=== PATIENT | female | born 1990 | race Caucasian/White ===

== ENCOUNTER 2019-05-27 05:08 | Emergency (ER) | payer BC, OTHER ==
[2019-05-27] MEDS ORDERED: DEXAMETHASONE SOD PHOSPHATE 10 MG/ML 1 ML VIAL IM STA (05:10)
[2019-05-27] MEDS ORDERED: PENICILLIN G BENZATHINE 1,200,000 UNIT/2 ML SYRINGE IM ONE (05:15)
--- NOTE | 2019-05-27 05:15 | ED ---
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 Patient presents the emergency department this morning for evaluation of progressively worsening sore throat and tonsillar enlargement and tender anterior cervical adenopathy. Patient does have 2 small children at home. They have not been sick. Patient reports she's had sore throat for couple of days but over the course of this shift while she's been speaking to patient's she's noticed progressively worsening sore throat and tender anterior cervical lymphadenopathy. Patient denies fevers chills nausea or vomiting. She's been eating and drinking well. She is not recently been treated for strep. - Related Data Allergies Allergy/AdvReac Type Severity Reaction Status Date / Time No Known Allergies Allergy Verified 05/27/19 05:19 Review of Systems ROS Statement: Those systems with pertinent positive or pertinent negative responses have been documented in the HPI. ROS Other: All systems not noted in ROS Statement are negative. General Exam - General Exam Comments Initial Comments: Physical Exam GENERAL: Patient is well-developed and well-nourished. Patient is nontoxic and well-hydrated and is in no distress. HENT: Normocephalic, Atraumatic. Tonsils bilaterally are enlarged with exudates Uvula is midline Tender anterior cervical lymphadenopathy EYES: PERRL, EOMI PULMONARY: Unlabored respirations CARDIOVASCULAR: RRR ABDOMEN: Nondistended SKIN: No rash : Deferred NEUROLOGIC: Patient is alert and oriented x3. Moving all extremities spontaneously MUSCULOSKELETAL: Normal extremities with adequate strength and full range of motion. No lower extremity swelling or edema. No calf tenderness. PSYCHIATRIC: Normal psychiatric evaluation. Course Vital Signs 05/27/19 05:14 Temperature 98 F Pulse Rate 119 H Respiratory 20 Rate Blood Pressure 177/116 O2 Sat by Pulse 97 Oximetry Medical Decision Making - Medical Decision Making The patient was seen and evaluated history is obtained from the patient is an history and physical exam are consistent with acute streptococcal pharyngitis. Treatment options were discussed with the patient. Offered the patient oral antibiotics versus IM penicillin. Patient prefers single IM dose she doesn't swallow pills. Decadron was ordered due to swelling. Penicillin was ordered. Patient discharged home in stable condition. Disposition Clinical Impression: Sore throat Disposition: HOME SELF-CARE Condition: Stable Instructions (If sedation given, give patient instructions): Strep Throat (DC) Is patient prescribed a controlled substance at d/c from ED?: No Referrals: Opal Lugo III, MD [Primary Care Provider] - 1-2 days
[2019-05-27 05:19] VITALS: BP 177/116; PULSE 119; RESP 20; TEMP 98
== END 2019-05-27 05:48 | disposition home or self-care (01) ==
LOC: EC 05:08
DX: J02.9 Acute pharyngitis, unspecified (principal)
CPT/HCPCS: 99283; 96372 ×2; J0561; J1100

== ENCOUNTER 2019-08-18 07:35 | Emergency (ER) | payer BC, OTHER ==
[2019-08-18 07:40] VITALS: BP 136/90; PULSE 110; RESP 19; TEMP 97.9
[2019-08-18] MEDS ORDERED: ACET/COD 300 MG/30 MG STARTER PACK 6 TAB BTL PO STA (07:54)
--- NOTE | 2019-08-18 07:57 | ED ---
Upper Extremity HPI - General Chief Complaint: Extremity Injury, Upper Stated Complaint: Fall, arm injury Time Seen by Provider: 08/18/19 07:42 Source: patient Mode of arrival: ambulatory Limitations: no limitations - History of Present Illness Initial Comments: 29-year-old female presents today for chief complaint of left elbow pain. Patient states that she fell in attempt at getting all the way for another person on the sidewalk she states that there was a large step-off. Patient states that she extended her left arm to catch herself and felt as though she hyperextended the left elbow. Patient denies any wrist pain shoulder pain she denies any injury to the head neck or back. Patient states she slightly rolled her right ankle but states this is not painful. She states her only area complaint is right elbow which is sharp shooting pain that times radiates down toward the right pinky. Especially with range of motion. Patient denies any weakness or numbness or coolness pallor of the extremity. Patient denies any other areas of complaint. Remaining review of systems negative upon arrival patient appears uncomfortable. - Related Data Home Medications Medication Instructions Recorded Confirmed Norgestimate-Ethinyl Estradiol 1 tab PO DAILY 08/18/19 08/18/19 [Sprintec 28 Day Tablet] Previous Rx's Medication Instructions Recorded Acetaminophen with Codeine 1 tab PO Q6H PRN 3 Days #12 tab 08/18/19 [Tylenol w/codeine #3] Allergies Allergy/AdvReac Type Severity Reaction Status Date / Time No Known Allergies Allergy Verified 08/18/19 08:32 Review of Systems ROS Statement: Those systems with pertinent positive or pertinent negative responses have been documented in the HPI. ROS Other: All systems not noted in ROS Statement are negative. Past Medical History Additional Past Medical History / Comment(s): PCOS History of Any Multi-Drug Resistant Organisms: None Reported Past Surgical History: Appendectomy Past Psychological History: No Psychological Hx Reported Smoking Status: Never smoker Past Alcohol Use History: Occasional Past Drug Use History: None Reported General Exam - General Exam Comments Initial Comments: General: The patient is awake and alert, in no distress, and does not appear acutely ill. Eye: +3 mm pupils are equal, round and reactive to light, extra-ocular movements are intact. No nystagmus. There is normal conjunctiva bilaterally. No signs of icterus. Cardiovascular: There is a regular rate and rhythm. No murmur, rub or gallop is appreciated. Respiratory: Lungs are clear to auscultation, respirations are non-labored, breath sounds are equal. No wheezes, stridor, rales, or rhonchi. Musculoskeletal: Upon inspection of the elbows bilaterally there is some soft tissue swelling noted over the ill or cramping process of the left elbow with point localized tenderness over the radial head patient has full range of motion at the wrist with no evidence of wrist drop. Normal ROM at the elbow but this causes pain especially with pronation and supination. Strength 5/5 of the UE b/l. Sensation intact of the UE b/l. Radial pulses equal bilaterally 2+. Neurological: A&O x 3. CN II-XII intact grossly, There are no obvious motor or sensory deficits. Coordination appears grossly intact. Speech is normal. Skin: Skin is warm and dry and no rashes or lesions are noted. Psychiatric: Cooperative, appropriate mood & affect, normal judgment. Limitations: no limitations Course Vital Signs 08/18/19 07:38 Temperature 97.9 F Pulse Rate 110 H Respiratory 19 Rate Blood Pressure 136/90 O2 Sat by Pulse 98 Oximetry Medical Decision Making - Medical Decision Making 29-year-old female presenting for fall. Left elbow pain no other complaints. Physical exam findings correlate clinically with the radial head fracture. Patient neurovascularly intact. Splint and sling were applied no change in neurovascular exam. Patient given starter pack for Tylenol No. 3 as well as outpatient prescription. Appropriate use and administration was discussed. Patient reports understanding. Otherwise this time feel patient is stable for discharge with outpatient orthopedic follow-up. Patient discharged appearing well. Disposition Clinical Impression: Radial head fracture, Fall Disposition: HOME SELF-CARE Condition: Good Instructions (If sedation given, give patient instructions): Elbow Fracture (ED) Additional Instructions: Please use medication as discussed. Please follow-up with orthopedic surgery in next week. Sling for comfort and keep splint in place. Please return to emergency room if the symptoms increase or worsen or for any other concerns. Prescriptions: Acetaminophen with Codeine [Tylenol w/codeine #3] 1 tab PO Q6H PRN 3 Days #12 tab PRN Reason: Severe Pain Is patient prescribed a controlled substance at d/c from ED?: Yes When asked, does pt state using other controlled substances?: No If prescribed controlled substance>3 days was MAPS reviewed?: Prescribed <3 Days If opioid is for acute pain is fill amount 7 days or less?: Yes If Rx opioid, was Start Talking consent form obtained?: Yes Referrals: Opal Lugo III, MD [Primary Care Provider] - 1-2 days Bossman Herrera DO [Medical Doctor] - 1-2 days Time of Disposition: 08:21
--- NOTE | 2019-08-18 08:15 | XR ---
EXAMINATION TYPE: XR elbow complete LT DATE OF EXAM: 08/18/2019 COMPARISON: NONE HISTORY: 29-year-old female fall and elbow pain TECHNIQUE: 3 views FINDINGS: Anterior elbow joint effusion. There is a nondisplaced, minimally impacted, intra-articular fracture of the lateral aspect of the radial head. No subluxation or dislocation. IMPRESSION: Nondisplaced, minimally impacted, intra-articular fracture along the lateral aspect of th e radial head. Associated anterior elbow joint effusion.
== END 2019-08-18 08:54 | disposition home or self-care (01) ==
LOC: EC 07:35
DX: S52.122A Displaced fracture of head of left radius, initial encounter for closed fracture (principal); Z79.3 Long term (current) use of hormonal contraceptives; W19.XXXA Unspecified fall, initial encounter; X50.1XXA Overexertion from prolonged static or awkward postures, initial encounter; Y93.89 Activity, other specified; Y92.480 Sidewalk as the place of occurrence of the external cause
CPT/HCPCS: 29105; 99283

== ENCOUNTER → 2019-09-05 | Outpatient (CLI) | payer OTHER | END | disposition home or self-care (01) | LOC: LABWHC1 15:57 | PROVIDERS: ATTEND Orthopaedic Surgery | DX: E55.9 Vitamin D deficiency, unspecified (principal); S52.122D Displaced fracture of head of left radius, subsequent encounter for closed fracture with routine healing; M25.522 Pain in left elbow | CPT/HCPCS: 36415; 82306 ==

== ENCOUNTER 2023-01-31 01:46 | Emergency (ER) | payer OTHER ==
[2023-01-31 01:51] VITALS: TEMP 98.8
[2023-01-31] MEDS ORDERED: ONDANSETRON 4 MG/2 ML VIAL IVP STA (02:17)
[2023-01-31] MEDS ORDERED: KETOROLAC 15 MG/ML 1 ML VIAL IVP STA (02:17)
[2023-01-31] MEDS ORDERED: SODIUM CHLORIDE 0.9% 1,000 ML IV STA (02:17)
--- NOTE | 2023-01-31 02:21 | ED ---
Abdominal Pain HPI - General Source: patient, RN notes reviewed Mode of arrival: ambulatory Limitations: no limitations - History of Present Illness MD Complaint: abdominal pain Onset/Timin -: week(s) Location: [facility] <Aleah Will - Last Filed: 01/31/23 05:11> <Iglesia Lowery - Last Filed: 01/31/23 08:17> - General Chief Complaint: Nausea/Vomiting/Diarrhea Stated Complaint: NVD, Upper Back Pain Time Seen by Provider: 01/31/23 02:07 - History of Present Illness Initial Comments: This is a 32-year-old female who presents to the emergency department for abdominal pain and upper back pain. States that she has a history of gallbladder problems and had a HIDA scan in 2016. States that this showed that she had a swollen and inflamed gallbladder but no gallstones. She since lost a lot of weight and was doing well. However, over the last couple of weeks she's had problems with compulsive binge eating and is eating a lot of greasy and fatty foods. Believes that she started to have gallbladder problems again, as her pain has since started to return. Reports associated nausea, vomiting, and diarrhea. Denies any fevers, chills, sore throat, cough, dyspnea, chest pain, palp itations, or headaches. (Aleah Will) - Related Data Home Medications Medication Instructions Recorded Confirmed norgestimate-ethinyl estradioL 1 tab PO DAILY 08/18/19 08/18/19 [Sprintec 28 Day Tablet] Previous Rx's Medication Instructions Recorded Acetaminophen with Codeine 1 tab PO Q6H PRN 3 Days #12 tab 08/18/19 [Tylenol w/codeine #3] Loperamide [Imodium] 2 mg PO BID PRN 7 Days #14 capsule 01/31/23 Ondansetron Odt [Zofran Odt] 4 mg PO Q8HR PRN 3 Days #9 tab 01/31/23 metroNIDAZOLE [Flagyl] 500 mg PO TID 7 Days #21 tab 01/31/23 Allergies Allergy/AdvReac Type Severity Reaction Status Date / Time No Known Allergies Allergy Verified 01/31/23 01:51 Review of Systems ROS Other: All systems not noted in ROS Statement are negative. <Aleah Will - Last Filed: 01/31/23 05:11> ROS Other: All systems not noted in ROS Statement are negative. <Iglesia Lowery - Last Filed: 01/31/23 08:17> ROS Statement: Those systems with pertinent positive or pertinent negative responses have been documented in the HPI. Past Medical History Additional Past Medical History / Comment(s): PCOS History of Any Multi-Drug Resistant Organisms: None Reported Past Surgical History: Appendectomy Past Psychological History: No Psychological Hx Reported Smoking Status: Never smoker Past Alcohol Use History: Occasional Past Drug Use History: None Reported <Aleah Will - Last Filed: 01/31/23 05:11> General Exam Limitations: no limitations General appearance: alert, in no apparent distress Head exam: Present: atraumatic, normocephalic, normal inspection Respiratory exam: Present: normal lung sounds bilaterally. Absent: respiratory distress, wheezes, rales, rhonchi, stridor Cardiovascular Exam: Present: regular rate, normal rhythm, normal heart sounds. Absent: systolic murmur, diastolic murmur, rubs, gallop, clicks GI/Abdominal exam: Present: soft, tenderness (RUQ), normal bowel sounds. Absent: distended Neurological exam: Present: alert, oriented X3, CN II-XII intact Psychiatric exam: Present: normal affect, normal mood Skin exam: Present: warm, dry, intact, normal color. Absent: rash <Aleah Will - Last Filed: 01/31/23 05:11> Course Vital Signs 01/31/23 01/31/23 01:48 06:28 Temperature 98.8 F Pulse Rate 106 H 88 Respiratory 20 18 Rate Blood Pressure 150/84 148/72 O2 Sat by Pulse 97 98 Oximetry Medical Decision Making - Lab Data Result diagrams: 01/31/23 02:12 01/31/23 02:12 - Radiology Data Radiology results: report reviewed, image reviewed <Aleah Will - Last Filed: 01/31/23 05:11> - Lab Data Result diagrams: 01/31/23 02:12 01/31/23 02:12 <Iglesia Lowery - Last Filed: 01/31/23 08:17> - Medical Decision Making This is a 32-year-old female who presents to the emergency department for abdominal pain. Was pt. sent in by a medical professional or institution? @ -No Did you speak to anyone other than the patient for history? @ -No Did you review nursing and triage notes? @ -Yes, and I agree, it is accurate with regards to the patient's symptoms. Were old charts reviewed? @ -HIDA scan from 2016 indicating a normal study. Differential Diagnosis? @ -Differential Abdominal Pain Women: Appendicitis, Cholecystitis, diverticulosis, ischemic bowel, pancreatitis, hepatitis, UTI, gastroenteritis, AAA, incarcerated hernia, bowel obstruction, constipation, inflammatory bowel, hepatitis, peptic ulcer disease, splenic infarction, perforated viscus, vulvitis, ovarian torsion, PID, kidney stone, placenta abruption, this is not meant to be an all-inclusive list EKG interpreted by me (3pts min.)? @ -Not obtained X-rays interpreted by me (1pt min.)? @ -Not obtained CT interpreted by me (1pt min.)? @ -[none] U/S interpreted by me (1pt. min.)? @ -[none] What testing was considered but not performed? (CT, X-rays, U/S, labs)? Why? @ -None What meds were considered but not given? Why? @ -None Did you discuss the management of the patient with other professionals? @ -No Did you reconcile home meds? @ -No Was smoking cessation discussed for >3mins.? @ -No Was critical care preformed (if so, how long)? @ -No Were there social determinants of health that impacted care today? How? (Homelessness, low income, unemployed, alcoholism, drug addiction, transportation, low edu. Level, literacy, decrease access to med. care, halfway, rehab)? @ -No Was there de-escalation of care discussed even if they declined? (Discuss DNR or withdrawal of care, Hospice)? @ -No What co-morbidities impacted this encounter? (DM, HTN, Smoking, COPD, CAD, Cancer, CVA, Hep., AIDS, mental health diagnosis, sleep apnea, morbid obesity)? @ -Morbid obesity Was patient admitted / discharged? @ -Lab work obtained revealing leukocytosis, and was otherwise nonactionable. Urinalysis consistent with contamination. I did review her HIDA scan from 2015 which was interpreted as normal. Pain initially controlled with Toradol, however she required morphine a couple of hours later. Ultrasound was not available when the patient presented to the emergency department. Because this was not an emergency, instead of calling the ultrasound team in overnight, computed tomography scan of the abdomen and pelvis was obtained. Due to delays associated with [employer], this was not read during my shift, and the case had to be signed out to ED attending, Dr. Lowery, at shift completion. Undiagnosed new problem with uncertain prognosis? @ -None Drug Therapy requiring intensive monitoring for toxicity (Heparin, Nitro, Insulin, Cardizem)? @ -None Were any procedures done? @ -None (Aleah Will) Patient signed out to me pending results of CT imaging. I agree with the evaluation by the mid-level provider prior to my evaluation. Abdominal labs returned remarkable for a contaminated urine. No other obvious findings. Nonspecific leukocytosis. Patient's CT abdomen and pelvis as interpreted by myself revealed cholelithiasis but no evidence of cholecystitis. Patient does have enteritis. I have given the patient. She is feeling improved. Patient will be discharged home at this time. She was in agreement this plan. As she has had symptoms for 2 weeks, it is possible that this enteritis may be bacterial in nature. I did offer a prescription for Flagyl that she can start in a few days if she is not improving. She was in agreement with this plan. She'll also be given a prescr iption for Imodium as well as ODT Zofran. I will provide the patient with a prescription for Imodium, ODT Zofran, Flagyl. I instructed the patient to follow up with their PCP in the next 1-3 days . I explained that the patient should return to the emergency department if they experience any worsening symptoms. Strict return precautions were discussed with the patient. The patient expressed understanding of these instructions. I answered all questions that the patient had. The patient was discharged home in good condition with their prescriptions and follow up information. Diagnosis/symptom? @ -Enteritis Acute, or Chronic, or Acute on Chronic? @ -Acute Uncomplicated (without systemic symptoms) or Complicated (systemic symptoms)? @ -Complicated Side effects of treatment? @ -none Exacerbation, Progression, or Severe Exacerbation] @ -no Poses a threat to life or bodily function? @ -no (Iglesia Lowery) - Lab Data Lab Results 01/31/23 01/31/23 01/31/23 Range/Units 02:12 02:12 02:12 WBC 13.3 H (3.8-10.6) k/uL RBC 4.80 (3.80-5.40) m/uL Hgb 14.4 (11.4-16.0) gm/dL Hct 44.4 (34.0-46.0) % MCV 92.5 (80.0-100.0) fL MCH 30.0 (25.0-35.0) pg MCHC 32.4 (31.0-37.0) g/dL RDW 14.4 (11.5-15.5) % Plt Count 399 (150-450) k/uL MPV 7.1 Neutrophils % 80 % Lymphocytes % 12 % Monocytes % 5 % Eosinophils % 3 % Basophils % 0 % Neutrophils # 10.5 H (1.3-7.7) k/uL Lymphocytes # 1.5 (1.0-4.8) k/uL Monocytes # 0.7 (0-1.0) k/uL Eosinophils # 0.4 (0-0.7) k/uL Basophils # 0.0 (0-0.2) k/uL Sodium 141 (137-145) mmol/L Potassium 3.9 (3.5-5.1) mmol/L Chloride 105 (98-107) mmol/L Carbon Dioxide 23 (22-30) mmol/L Anion Gap 13 mmol/L BUN 15 (7-17) mg/dL Creatinine 0.71 (0.52-1.04) mg/dL Est GFR (CKD-EPI)AfAm >90 (>60 ml/min/1.73 sqM) Est GFR (CKD-EPI)NonAf >90 (>60 ml/min/1.73 sqM) Glucose 106 H (74-99) mg/dL Calcium 9.4 (8.4-10.2) mg/dL Total Bilirubin 0.9 (0.2-1.3) mg/dL AST 27 (14-36) U/L ALT 29 (4-34) U/L Alkaline Phosphatase 84 (38-126) U/L Total Protein 7.6 (6.3-8.2) g/dL Albumin 4.4 (3.5-5.0) g/dL Amylase 49 (30-110) U/L Lipase 88 (23-300) U/L HCG, Qual Not Detected Urine Color Urine Appearance (Clear) Urine pH (5.0-8.0) Ur Specific [place] (1.001-1.035) Urine Protein (Negative) Urine Glucose (UA) (Negative) Urine Ketones (Negative) Urine Blood (Negative) Urine Nitrite (Negative) Urine Bilirubin (Negative) Urine Urobilinogen (<2.0) mg/dL Ur Leukocyte Esterase (Negative) Urine RBC (0-5) /hpf Urine WBC (0-5) /hpf Ur Squamous Epith Cells (0-4) /hpf Calcium Oxalate Crystal (None) /hpf Urine Bacteria (None) /hpf Urine Mucus (None) /hpf 01/31/23 Range/Units 02:29 WBC (3.8-10.6) k/uL RBC (3.80-5.40) m/uL Hgb (11.4-16.0) gm/dL Hct (34.0-46.0) % MCV (80.0-100.0) fL MCH (25.0-35.0) pg MCHC (31.0-37.0) g/dL RDW (11.5-15.5) % Plt Count (150-450) k/uL MPV Neutrophils % % Lymphocytes % % Monocytes % % Eosinophils % % Basophils % % Neutrophils # (1.3-7.7) k/uL Lymphocytes # (1.0-4.8) k/uL Monocytes # (0-1.0) k/uL Eosinophils # (0-0.7) k/uL Basophils # (0-0.2) k/uL Sodium (137-145) mmol/L Potassium (3.5-5.1) mmol/L Chloride (98-107) mmol/L Carbon Dioxide (22-30) mmol/L Anion Gap mmol/L BUN (7-17) mg/dL Creatinine (0.52-1.04) mg/dL Est GFR (CKD-EPI)AfAm (>60 ml/min/1.73 sqM) Est GFR (CKD-EPI)NonAf (>60 ml/min/1.73 sqM) Glucose (74-99) mg/dL Calcium (8.4-10.2) mg/dL Total Bilirubin (0.2-1.3) mg/dL AST (14-36) U/L ALT (4-34) U/L Alkaline Phosphatase (38-126) U/L Total Protein (6.3-8.2) g/dL Albumin (3.5-5.0) g/dL Amylase (30-110) U/L Lipase (23-300) U/L HCG, Qual Urine Color Yellow Urine Appearance Cloudy H (Clear) Urine pH 5.5 (5.0-8.0) Ur Specific [place] 1.031 (1.001-1.035) Urine Protein 1+ H (Negative) Urine Glucose (UA) Negative (Negative) Urine Ketones Negative (Negative) Urine Blood Small H (Negative) Urine Nitrite Negative (Negative) Urine Bilirubin Negative (Negative) Urine Urobilinogen <2.0 (<2.0) mg/dL Ur Leukocyte Esterase Large H (Negative) Urine RBC 9 H (0-5) /hpf Urine WBC 65 H (0-5) /hpf Ur Squamous Epith Cells 50 H (0-4) /hpf Calcium Oxalate Crystal Many H (None) /hpf Urine Bacteria Rare H (None) /hpf Urine Mucus Many H (None) /hpf Disposition <Aleah Will - Last Filed: 01/31/23 05:11> Is patient prescribed a controlled substance at d/c from ED?: No Time of Disposition: 06:05 <Iglesia Lowery - Last Filed: 01/31/23 08:17> Clinical Impression: Enteritis Disposition: HOME SELF-CARE Condition: Fair Instructions (If sedation given, give patient instructions): Acute Nausea and Vomiting (ED), Acute Diarrhea (ED), Enteritis (ED) Prescriptions: metroNIDAZOLE [Flagyl] 500 mg PO TID 7 Days #21 tab Loperamide [Imodium] 2 mg PO BID PRN 7 Days #14 capsule PRN Reason: Diarrhea Ondansetron Odt [Zofran Odt] 4 mg PO Q8HR PRN 3 Days #9 tab PRN Reason: Nausea Referrals: Opal Lugo III, MD [Primary Care Provider] - 1-2 days
[2023-01-31 02:29] LABS: Basophils % (A) 0 %; Eosinophils # (A) 0.4 k/uL (0-0.7); Eosinophils % (A) 3 %; HCT 44.4 % (34.0-46.0); HGB 14.4 gm/dL (11.4-16.0); Lymphocytes # (A) 1.5 k/uL (1.0-4.8); Lymphocytes % (A) 12 %; MCHC 32.4 g/dL (31.0-37.0); MCV 92.5 fL (80.0-100.0); Mean Platelet Volume 7.1; Monocytes # (A) 0.7 k/uL (0-1.0); Monocytes % (A) 5 %; Neutrophils # (A) 10.5 k/uL (1.3-7.7); Neutrophils % (A) 80 %; Platelet Count 399 k/uL (150-450); RDW 14.4 % (11.5-15.5); WBC 13.3 k/uL (3.8-10.6)
[2023-01-31 02:43] LABS: ALT 29 U/L (4-34); AST 27 U/L (14-36); African American GFR (CKD) >90 (>60 ml/min/1.73 sqM); Albumin 4.4 g/dL (3.5-5.0); Alkaline Phosphatase 84 U/L (38-126); Amylase 49 U/L (30-110); Anion Gap 13 mmol/L; Blood Urea Nitrogen 15 mg/dL (7-17); Calcium 9.4 mg/dL (8.4-10.2); Carbon Dioxide 23 mmol/L (22-30); Chloride 105 mmol/L (98-107); Glucose 106 mg/dL (74-99); Lipase 88 U/L (23-300); Non-African American GFR(CKD) >90 (>60 ml/min/1.73 sqM); Potassium 3.9 mmol/L (3.5-5.1); Sodium 141 mmol/L (137-145); Total Bilirubin 0.9 mg/dL (0.2-1.3); Total Protein 7.6 g/dL (6.3-8.2)
[2023-01-31 02:58] LABS: Appearance,Urine Cloudy (Clear); Bacteria,Urine Rare /hpf; Bilirubin,Urine Negative (Negative); Blood,Urine Small (Negative); Calcium Oxalate Crystals,Urine Many /hpf; Color,Urine Yellow; Glucose,Urine (UA) Negative (Negative); Ketones,Urine Negative (Negative); Leukocyte Esterase,Urine Large (Negative); Mucus,Urine Many /hpf; Nitrite,Urine Negative (Negative); PH, Urine 5.5 (5.0-8.0); Protein,Urine 1+ (Negative); RBC,Urine 9 /hpf (0-5); Specific Gravity,Urine 1.031 (1.001-1.035); Squamous Epithelial Cell,Urine 50 /hpf (0-4); Urobilinogen,Urine <2.0 mg/dL (<2.0); WBC,Urine 65 /hpf (0-5)
[2023-01-31] MEDS ORDERED: MORPHINE SULFATE 2 MG/ML SYRINGE IVP STA (04:51)
--- NOTE | 2023-01-31 05:49 | CT ---
EXAM: CT Abdomen and Pelvis With Intravenous Contrast CLINICAL HISTORY: ITS.REASON CT Reason: RUQ pain TECHNIQUE: Axial computed tomography images of the abdomen and pelvis with intravenous contrast. CTDI is 48.2 mGy and DLP is 2440.1 mGy-cm. This CT exam was performed using one or more of the following dose reduction techniques: automated exposure control, adjustment of the mA and/or kV according to patient size, and/or use of iterative reconstruction technique. COMPARISON: No relevant prior studies available. FINDINGS: ABDOMEN: Liver: Enlarged mildly fatty liver. Gallbladder and bile ducts: Possible tiny stones. Pancreas: Unremarkable. Spleen: Unremarkable. Adrenals: Unremarkable. Kidneys and ureters: No hydronephrosis. Stomach and bowel: No bowel obstruction. No bowel wall thickening. Diffusely fluid-filled bowel loops are seen, correlate with enteritis. PELVIS: Appendix: No evidence of appendicitis. Bladder: Unremarkable. Reproductive: Unremarkable. ABDOMEN and PELVIS: Intraperitoneal space: Unremarkable. Bones/joints: No acute fractures. Soft tissues: Unremarkable. Vasculature: No abdominal aortic aneurysm. Lymph nodes: No enlarged lymph nodes. IMPRESSION: Diffusely fluid-filled bowel loops are seen, correlate with enteritis. Enlarged mildly fatty liver. Possible gallstones. Consider ultrasound
[2023-01-31 06:29] VITALS: BP 148/72; PULSE 88; RESP 18
== END 2023-01-31 06:29 | disposition home or self-care (01) ==
LOC: EC 01:46
DX: K52.9 Noninfective gastroenteritis and colitis, unspecified (principal); K76.0 Fatty (change of) liver, not elsewhere classified
CPT/HCPCS: 36415; 80053; 82150; 83690; 85025; 81001; 84703; 74177; 99285; 96374; 96375 ×2; 96361; J2405; J2270; J1885; Q9967